=== PATIENT | female | born 1990 ===

== ENCOUNTER 2018-04-18 09:17 | Emergency (ER) | payer OTHER ==
[~2018-04-18] VITALS: Ht 175.3 cm; Wt 77.1 kg
[2018-04-18] MEDS ORDERED: ALBUTEROL1.25 MG/3 IH (12:46)
[2018-04-18] MEDS ORDERED: OSEL75CA PO (12:46)
[2018-04-18] MEDS ORDERED: MEDROLPACK PO (12:46)
[2018-04-18] MEDS ORDERED: TUSSI PRES-B L120 M1 PO (12:46)
[2018-04-18] MEDS ORDERED: PROVENTIL HFA6.7 GM IH (12:46)
== END 2018-04-18 12:55 | disposition home or self-care (01) ==
LOC: ER 09:17
DX: B34.9 Viral infection, unspecified (principal)